=== PATIENT | male | born 1970 | race Asian ===

== ENCOUNTER 2024-10-13 02:05 | Emergency (ER) | payer MEDICARE, OTHER ==
[~2024-10-13] VITALS: Ht 167.6 cm; Wt 93.9 kg
[~2024-10-13 02:05] MED LIST: BUSP10TA3 PO
--- NOTE | 2024-10-13 02:39 | ERN ---
ED Note History of Present Illness Stated Complaint: C/O WITHDRAWAL SYMPTOMS; STOPPED MEDS ON 1970 Chief Complaint: Other Problems Time Seen by MD: 02:31 Dictation: This is a 54-year-old male with known history of multiple medical problems presented to the emergency room stating that he is going through withdrawal symptoms. When asked to elaborate patient stated that he has had body aches and joint pains as well as feeling hot and cold and sweaty. Patient stated that he has taken multiple showers without any improvement. He also reported some shortness of breath and chest congestion and wheezing. He is a smoker and continues to smoke actively. He stated that his psych medications which included olanzapine, BuSpar, hydroxyzine and metformin-he stopped taking them on 10/01/2024 basically attributing all his symptoms as adverse effects of the medications. He stated that he called his psychiatrist but did not get a return call back. He did see his primary care physician who initiated him on losartan, cholesterol medication. He denied any suicidal ideations or hallucinations. He also denied any homicidal ideations. He is very pleasant and interactive Temperature 98 pulse 69 respirations 20 blood pressure 190/110 with a pulse oximetry of 99% on room air His chronic medical problems include anxiety, depression, hypertension, schizophrenia and history of back surgery Allergies: Coded Allergies: No Known Allergies (Unverified Allergy, Unknown, 05/18/23) Home Meds Active Scripts Buspirone HCl (Buspirone HCl) 10 Mg Tablet, 10 MG PO TID PRN for ANXIETY/DEPRESSION for 30 Days, #90 TAB 1 Refill Prov:ANCELMO OLVERA 05/18/23 Past Medical History Past Medical History: Anxiety, Depression, Hypertension, Schizophrenia Surgical History: Other Surgical History Other: BACK SX Family History: Negative Social History: Smokers, Drugs (Marijuana use) RN Note Reviewed/Agreed w/PFSH: Yes Review of System Dictation Constitutional: Negative for fever,chills, and weight loss Eyes: Negative for injury, pain,redness, and discharge ENT: Negative for injury,pain or swelling Cardiovascular: Negative for chest pain, palpitations, and edema Respiratory: Positive for shortness of breath, cough, and wheezing, also reports sinus congestion Abdomen/GI: Negative for abdominal pain, nausea, vomiting, diarrhea, and constipation Back: Negative for injury and pain : Negative for injury, bleeding and discharge MS/Extremity: Negative for injury and deformity Skin: Negative for rash, and discoloration Neuro: Negative for headache, weakness, numbness, tingling, and seizure Psych: Negative for suicide ideation, homicidal ideation, and hallucinations positive for severe anxiety and feels that he has withdrawal symptoms as he stopped taking his medications on 10/01/2024 Initial Vital Sign VS Vital Signs Date Time Temp Pulse Resp B/P (MAP) Pulse Ox O2 Delivery O2 Flow Rate FiO2 10/13/24 02:09 98.1 69 20 190/110 99 Room Air 10/13/24 04:17 0 21 Physical Exam Dictation General: awake, alert, NAD generally anxious Head/Face: Normocephalic, atraumatic Eyes: PERRL, EOMI, vision at baseline ENT: oral cavity clear, TMs clear, no signs of infection Neck: Trachea midline, supple, no nuchal rigidity Cardiovascular: RRR, normal S1/S2, No MRGs, no JVD Respiratory: Prolonged expiratory phase with a end expiratory wheezing with forced expiratory maneuver Abdomen: Soft, non-tender, non-distended, normal bowel sounds, no guarding or rebound. Skin: Warm, dry, normal turgor, no rash MS/Extremity: Pulses equal, no cyanosis, neurovascular intact, FROM Neuro: COAx4, GCS 15, strength 5/5, CN 2-12 intact, normal cerebellar exam, nor mal gait, Psych: Normal behavior, mood, and affect normal Extremities-trace edema without any palpable cords, Homans sign is negative Results (Laboratory/Radiology) Laboratory/Radiology Laboratory Tests Test 10/13/24 02:58 10/13/24 03:10 White Blood Count 11.9 K/uL (4.8-10.8) H Red Blood Count 4.42 MIL/uL (4.50-6.20) L Hemoglobin 13.9 g/dL (14.0-18.0) L Hematocrit 39.4 % (42-54) L Mean Corpuscular Volume 89.1 fL (79-99) Mean Corpuscular Hemoglobin 31.4 pg (27.0-33.0) Mean Corpuscular Hemoglobin Concent 35.3 g/dL (32.0-36.0) Red Cell Distribution Width 14.0 % (11.0-15.5) Platelet Count 264 K/uL (130-400) Mean Platelet Volume 9.4 fL (7.5-10.5) Immature Granulocyte % (Auto) 0.3 % (0-1) Neutrophils (%) (Auto) 69.3 % (40.0-77.0) Lymphocytes (%) (Auto) 19.8 % (21.0-51.0) L Monocytes (%) (Auto) 9.2 % (3.0-13.0) Eosinophils (%) (Auto) 1.1 % (0.0-8.0) Basophils (%) (Auto) 0.3 % (0.0-5.0) Neutrophils # (Auto) 8.3 K/uL (1.8-7.7) H Lymphocytes # (Auto) 2.4 K/uL (1.0-4.8) Monocytes # (Auto) 1.1 K/uL (0.1-1.0) H Eosinophils # (Auto) 0.13 K/uL (0.00-0.70) Basophils # (Auto) 0.04 K/uL (0.00-0.20) Absolute Immature Granulocyte (auto 0.04 K/uL (0-1) Nucleated Red Blood Cells 0.0 % (0.0-0.19) Urine Color COLORLESS (YELLOW) Urine Appearance CLEAR (CLEAR) Urine pH 5.5 (5.0-8.0) Urine Specific [place] 1.002 (1.001-1.031) Urine Protein NEGATIVE mg/dL (NEGATIVE) Urine Glucose (UA) NEGATIVE mg/dL (NEGATIVE) Urine Ketones NEGATIVE mg/dL (NEGATIVE) Urine Occult Blood +- (TRACE) (NEGATIVE) H Urine Nitrate NEGATIVE (NEGATIVE) Urine Bilirubin NEGATIVE mg/dL (NEGATIVE) Urine Urobilinogen 0.2 mg/dL (0.2-1.0) Urine Leukocyte Esterase NEGATIVE [place]/uL Urine RBC 0-1 /HPF (0-1) Urine WBC 0-1 /HPF (0-1) Urine Bacteria None /HPF (None Seen) Sodium Level 136 mmol/L (136-145) Potassium Level 3.0 mmol/L (3.5-5.1) *L Chloride Level 99 mmol/L (101-111) L Carbon Dioxide Level 27 mmol/L (21-32) Blood Urea Nitrogen 2 mg/dL (7-18) L Creatinine 1.2 mg/dL (0.5-1.3) Glomerular Filtration Rate Calc 72 mL/min (>90) Random Glucose 152 mg/dL (70-105) H Total Calcium 8.9 mg/dL (8.5-10.1) Urine Opiates Screen NEGATIVE (NEGATIVE) Urine Barbiturates Screen NEGATIVE (NEGATIVE) Urine Phencyclidine Screen NEGATIVE (NEGATIVE) Urine Amphetamines Screen NEGATIVE (NEGATIVE) Urine Benzodiazepines Screen NEGATIVE (NEGATIVE) Urine Cocaine Screen NEGATIVE (NEGATIVE) Urine Marijuana (THC) Screen POSITIVE (NEGATIVE) H Influenza Type A Antigen Negative For Type A Influenza Type B Antigen Negative For Type B SARS-CoV-2 Antigen (Rapid) PRESUMPTIVE NEGATIVE Group A Streptococcus Rapid negative (NEGATIVE) Labs Reviewed?: Yes EKG Comment: Twelve lead EKG done on 10/13/2024 at 3:52 a.m. a.m. shows a heart rate of 64, AL interval 162, QRS 92, QT/QTC 406/421 Impression normal sinus rhythm with a no acute STT wave changes. QT interval normal. EKG rhythm strip shows a normal sinus rhythm with no acute STT wave change Interpreted by ER MD Dr. Maldonado ED Course ED Course Orders Procedure Category Date Status Time Cbc With Differential LAB 10/13/24 Complete 02:34 Basic Metabolic Panel LAB 10/13/24 Complete 02:34 Urinalysis Profile LAB 10/13/24 Complete 02:34 Drug Screen Urine LAB 10/13/24 Complete 02:34 12 Lead Ekg Tracing- EKG 10/13/24 Logged Technical 02:34 Diazepam 5 Mg/Ml 2 Ml PHA 10/13/24 Complete Syg (Valium 5 Mg/M 03:00 Influenza Type A & B, LAB 10/13/24 Complete Rapid 02:57 Covid19 (Sars Antigen LAB 10/13/24 Complete Rapid) 02:57 Rapid (Group A Strep) LAB 10/13/24 Complete 02:57 Ipratropium/Albuterol PHA 10/13/24 Complete Neb (Duoneb) 03:00 Methylprednisolone PHA 10/13/24 Complete Succ 40mg (Solu-Medro 03:00 Chest 1vw RAD 10/13/24 Taken 02:57 Potassium Bicarb/Cit PHA 10/13/24 Complete Ac 25meq (K-Lyte Ta 03:30 Current Medications Medications (Trade) Dose Ordered Sig/Oscar Route PRN Reason Start Time Stop Time Status Last Admin Dose Admin Albuterol (DUOneb) 1 UDVIAL ONCE ONCE IH 10/13/24 03:00 10/13/24 03:01 DC 10/13/24 03:45 Diazepam (VALium 5 MG/ML 2 ML SYG) 5 mg ONCE ONCE IVP 10/13/24 03:00 10/13/24 03:01 DC 10/13/24 03:00 Methylprednisolone Sodium Succinate (Solu-medROL 40MG) 40 mg ONCE ONCE IVP 10/13/24 03:00 10/13/24 03:01 DC 10/13/24 03:11 Potassium Bicarbonate (K-Lyte Tablet Eff 25 Meq Tablet.eff) 50 meq ONCE ONCE PO 10/13/24 03:30 10/13/24 03:32 DC 10/13/24 03:39 Vital Signs Date Time Temp Pulse Resp B/P (MAP) Pulse Ox O2 Delivery O2 Flow Rate FiO2 10/13/24 04:17 98.4 70 18 157/88 100 Room Air* 0 21 10/13/24 03:45 72 19 10/13/24 02:09 98.1 69 20 190/110 99 Room Air We will perform diagnostic labs, and administer medications according to the pa tient's complaint. Once the results are available, will review and personally interpreted the labs to rule out any acute life-threatening emergency the trach require immediate intervention and treatment. I will then re-evaluate the patient after treatment and diagnostic exams have return to determine whether the patient requires any further testing, can safely be discharged home or need further admission to hospital for additional treatment and evaluation. Labs reviewed CBC shows a white count of 11.9 otherwise with a normal limits. BNP 7 is significant for a potassium of 3.0 BUN and creatinine are 2 and 1.2. Nasal swabs for influenza COVID and streptococcal pharyngitis are all negative Urine drug screen is positive for THC. Chest x-ray shows COPD changes and dirty lungs from smoking 4:00 a.m. on re-evaluation patient admits to feeling significantly better. Potassium supplementation is in progress Medical Decision Making MDM Differential diagnosis: Anxiety, panic attack, withdrawal from the medications, recreational drug abuse Rationale: Tests considered and ordered secondary to shared decision making include: Previous outside records reviewed: Old ER visits. Risk of complication and/or morbidity or mortality of patient management: None Medications-Per medication reconciliation Need for hospitalization: Patient does not meet criteria for hospitalization. Need for emergency major/minor surgery: No There are no social concerns with this patient. Prescription drug management Prescriptions will include symptomatic care Patient's prior external medical records from other ER visits were reviewed by me as indicated. Prior testing and results from previous visits were reviewed. Prior tests were taken into account with medical decision making and resource utilization, independent historian/historians were used to obtain complete medical history. I independently interpreted the test that were performed, results were reviewed by me and considered findings on radiology if ordered. Medical management and examination interpretation discussions were had by me with other qualified healthcare professionals as indicated for the patient's care. Problem List Problem List: (1) Moderate anxiety (2) Schizophrenia (3) Depression (4) Uncontrolled hypertension (5) Hypokalemia (6) COPD exacerbation DX & DISP Disposition: Discharge Departure Impression: Primary Impression: Uncontrolled hypertension Additional Impressions: COPD exacerbation, Hypokalemia, Moderate anxiety, Depression, Schizophrenia Condition: Stable Scripts Diazepam (Valium) 2 Mg Tablet 1 TAB PO [id number] PRN for anxiety for 3 Days, #6 TAB 0 Refills Prov: TREVA MALDONADO MD 10/13/24 Ipratropium/Albuterol Sulfate (Combivent Respimat Inhal [place]) 20 Mcg-100 Mcg/Actuation Aer.w.adap 2 PUFF IH TID for shortness of breath, #4 GM 0 Refills Prov: TREVA MALDONADO MD 10/13/24 Azithromycin (Azithromycin) 250 Mg Tablet 1 TAB PO AD for 5 Days, #6 TAB 0 Refills 2 the first day followed by 1 for days 2-5 Prov: TREVA MALDONADO MD 10/13/24 Prednisone (Prednisone) 20 Mg Tablet 1 TAB PO AD for 6 Days, #14 TAB 0 Refills TAKE 1 TAB BY MOUTH THREE TIMES PER DAY X3 DAYS, THEN TAKE 1 TAB BY MOUTH TWICE A DAY X2 DAYS, THEN TAKE 1 TAB BY MOUTH ONCE A DAY X1 DAY. Prov: TREVA MALDONADO MD 10/13/24 Additional Instructions: Patient and the caregiver have been informed of all the diagnostic tests and the imaging conducted during the today's visit to the emergency room and has verbalized understanding of the results I have personally reviewed and interpreted all diagnostic exams performed here in the ER today as well as the vital signs documented by the nursing staff. The patient is now being discharged to home and should follow up with the primary care physician or the specialist as directed by the ER staff. Follow-up with primary care provider in 1 to 2 days. Take medications as directed here in the emergency room. Okay to continue home medications unless otherwise discussed during your visit in the emergency room today. Return to your nearest emergency room if symptoms worsen or if there is no improvement. Call 911 if you need immediate assistance. Take Tylenol or Motrin [id number] as needed and if no contraindications are present. Increase oral hydration. A wound culture or urine culture was ordered here in the emergency room department please follow-up with primary care provider and advise them to get repeat ports from our facility. If you had any [place]o wrap/splints that were applied here, please do not remove them until you see your primary care or specialty. Referrals: SELF,REFERRAL (PCP) TREVA MALDONADO MD Oct 13, 2024 02:39
[2024-10-13 03:10] LABS: IMMATURE GRANULOCYTE ABSOLUTE 0.04 K/uL (0-1); NUCLEATED RED BLOOD CELLS 0.0 % (0.0-0.19); PLATELET COUNT (AUTO) 264 K/uL (130-400); RED BLOOD CELL COUNT(AUTO) 4.42 MIL/uL (4.50-6.20); RED CELL DISTRIBUTION WIDTH 14.0 % (11.0-15.5); WHITE BLOOD COUNT (AUTO) 11.9 K/uL (4.8-10.8)
[2024-10-13] MEDS: Solu-medROL 40MG VIAL IVP ONE (03:11)
[2024-10-13 03:13] LABS: APPEARANCE,URINE CLEAR (CLEAR); GLUCOSE, URINE (UA) NEGATIVE (NEGATIVE); LEUKOCYTE ESTERASE ,URINE NEGATIVE Leu/uL (NEGATIVE); NITRATE,URINE NEGATIVE (NEGATIVE); OCCULT BLOOD,URINE +- (TRACE) (NEGATIVE)
[2024-10-13 03:20] LABS: AMPHET/METH SCREEN,URINE NEGATIVE (NEGATIVE); BARBITURATE SCREEN, URINE NEGATIVE (NEGATIVE); CANNABINOID SCREEN,URINE POSITIVE (NEGATIVE); COCAINE SCREEN,URINE NEGATIVE (NEGATIVE)
[2024-10-13 03:21] LABS: CREATININE 1.2 mg/dL (0.5-1.3); GLOMERULAR FILTR. RATE CALC 72.0 mL/min (>90); GLUCOSE,RANDOM 152.0 mg/dL (70-105); SODIUM SERUM 136.0 mmol/L (136-145); UREA NITROGEN, BLOOD 2.0 mg/dL (7-18)
[2024-10-13 03:26] LABS: RAPID GROUP A STREP negative (NEGATIVE)
[2024-10-13 03:28] LABS: ADD UA MICROSCOPIC YES
[2024-10-13 03:36] LABS: COVID19 (SARS ANTIGEN RAPID) PRESUMPTIVE NEGATIVE (NEGATIVE); INFLUENZA TYPE A Negative For Type A (NEGATIVE); INFLUENZA TYPE B Negative For Type B (NEGATIVE)
[2024-10-13 03:45] VITALS: PULSE 72; RESP 19
[2024-10-13 04:17] VITALS: BP 157/88; PULSE 70; RESP 18; TEMP 98.4; O2SAT 100
[2024-10-13] MEDS ORDERED: IPRA4AER IH (04:34)
[2024-10-13] MEDS ORDERED: PRED20TA3 PO (04:34)
[2024-10-13] MEDS ORDERED: DIAZ2TAB PO (04:34)
[2024-10-13] MEDS ORDERED: AZIT250T9 PO (04:34)
--- NOTE | 2024-10-13 04:42 | HMCIMG ---
EXAM: CR Chest, 1 view CLINICAL HISTORY: Chest congestion and wheezing. COMPARISON: None provided. FINDINGS: The lungs show no infiltrates or other acute findings. Mild atelectatic opacities around the left lingula. No pleural effusion or pneumothorax. The cardiomediastinal silhouette is within normal limits. No acute osseous abnormality. IMPRESSION: No acute cardiopulmonary process is evident. Mild atelectatic opacities around the left lingula. /[place]
--- NOTE | 2024-10-13 06:31 | EKG ---
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
[2024-10-13] MEDS ORDERED: TRAZ-185 PO (18:34)
[2024-10-13] MEDS ORDERED: OMEP40CA21 PO (18:34)
[2024-10-13] MEDS ORDERED: IBUP-2077 PO (18:34)
[2024-10-13] MEDS ORDERED: LOSA100T59 PO (18:34)
[2024-10-13] MEDS ORDERED: LEVO25CA5 PO (18:34)
[2024-10-13] MEDS ORDERED: ATOR10 PO (18:34)
[2024-10-13] MEDS ORDERED: OLAN20TA82 PO (19:09)
[2024-10-13] MEDS ORDERED: HYDR-3421 PO (19:09)
[2024-10-13] MEDS ORDERED: METF-444 PO (19:09)
[2024-10-13] MEDS ORDERED: BUSP15TA3 PO (19:09)
[2024-10-15] MEDS ORDERED: CARV6.2579 PO (15:51)
[2024-10-15] MEDS ORDERED: LOSA-418 PO (15:51)
[2024-10-15] MEDS ORDERED: AMLO5TAB4 PO (15:51)
== END 2024-10-13 04:42 | disposition home or self-care (01) ==
LOC: EDH 02:05
DX: I10 Essential (primary) hypertension (principal); J44.1 Chronic obstructive pulmonary disease with (acute) exacerbation; E87.6 Hypokalemia; F32.A Depression, unspecified; F20.9 Schizophrenia, unspecified; F17.200 Nicotine dependence, unspecified, uncomplicated; F41.9 Anxiety disorder, unspecified; Z20.822 Contact with and (suspected) exposure to COVID-19
CPT/HCPCS: 99285; 96374; 71045; 96375; 87426; 80048; 80305; 85025; 87880; 87804 ×2; 36415; 93005; 94640; 81001; J2919; J3360

== ENCOUNTER 2024-11-08 11:25 | Emergency (ER) | payer OTHER ==
[~2024-11-08] VITALS: Ht 167.6 cm; Wt 88.7 kg
[~2024-11-08 11:25] MED LIST changes: +AMLO5TAB4 PO; +ATOR10 PO; -BUSP10TA3 PO; +BUSP15TA3 PO; +CARV6.2579 PO; +HYDR-3421 PO; +IPRA4AER IH; +LEVO25CA5 PO; +LOSA-418 PO; +METF-444 PO; +OLAN20TA82 PO; +OMEP40CA21 PO; +TRAZ-185 PO
--- NOTE | 2024-11-08 11:33 | ERN ---
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 HE HAD SEEN DR. MACIAS FOR A LEFT VENTRICULAR HYPERTROPHY WHILE AT [facility] [place] AND WAS STARTED ON A NEW BLOOD PRESSURE MEDICATIONS SAID HE HAS BEEN FEELING THIS WAY SINCE. NO NAUSEA NO VOMITING NO BACK PAIN NO JAW PAIN NO ARM PAIN. STATES HE HAS A AN APPOINTMENT WITH DR. JEAN-BAPTISTE ON FRIDAY. Allergies: Coded Allergies: No Known Allergies (Unverified Allergy, Unknown, 05/18/23) Home Meds Active Scripts Losartan Potassium (Cozaar) 50 Mg Tablet, 50 MG PO BID, #60 TAB Prov:MICHEAL VOGEL MD 10/15/24 Carvedilol (Coreg) 6.25 Mg Tablet, 6.25 MG PO BID, #60 TAB Prov:MICHEAL VOGEL MD 10/15/24 Amlodipine Besylate (Norvasc 5Mg Tab) 5 Mg Tablet, 5 MG PO DAILY, #30 TAB Prov:MICHEAL VOGEL MD 10/15/24 Ipratropium/Albuterol Sulfate (Combivent Respimat Inhal [place]) 20 Mcg-100 Mcg/Actuation Aer.w.adap, 2 PUFF IH TID for shortness of breath, #4 GM 0 Refills Prov:TREVA MALDONADO MD 10/13/24 Reported Medications Hydroxyzine HCl (Hydroxyzine HCl) 25 Mg Tablet, 25 MG PO QIDP PRN for ITCHING, TAB 10/13/24 Buspirone HCl (Buspirone HCl) 15 Mg Tablet, 15 MG PO TID, TAB 10/13/24 Olanzapine (Olanzapine) 20 Mg Tablet, 20 MG PO HS, TAB 10/13/24 Metformin HCl (Metformin HCl) 500 Mg Tablet, 500 MG PO DAILY, TAB 10/13/24 Levothyroxine Sodium (Levothyroxine) 25 Mcg Capsule, 1 CAP PO DAILY for 30 Days, #30 CAP 0 Refills 10/13/24 Atorvastatin Calcium (LIPITOR) 20 Mg Tab, 1 TAB PO HS for 30 Days, #30 TAB 0 Refills 10/13/24 Omeprazole (Omeprazole) 40 Mg Capsule.dr, 1 CAP PO DAILY for 30 Days, #30 CAP 0 Refills 10/13/24 Trazodone HCl (Trazodone HCl) 50 Mg Tablet, 1 TAB PO HS for 30 Days, #30 TAB 0 Refills 10/13/24 Past Medical History Past Medical History: Anxiety, Depression, Heart Disease, Hypertension, Schizophrenia Additional Past Medical Hx: IMSOMNIA, SCIATICA Surgical History: Other Surgical History Other: LUMBAR FUSION Family History: Negative Social History: Smokers, Drugs RN Note Reviewed/Agreed w/PFSH: Yes Review of System Dictation CONSTITUTIONAL: NEGATIVE EXCEPT FOR HPI HEAD/FACE: NEGATIVE EXCEPT FOR HPI EENT: NEGATIVE EXCEPT FOR HPI RESPIRATORY: NEGATIVE EXCEPT FOR HPI SOB/CHEST PRESSURE GASTROINTESTINAL/ABDOMINAL: NEGATIVE EXCEPT FOR HPI GENITOURINARY: NEGATIVE EXCEPT FOR HPI MUSCULOSKELETAL: NEGATIVE EXCEPT FOR HPI INTEGUMENTARY: NEGATIVE EXCEPT FOR HPI NEUROLOGICAL/PSYCH: NEGATIVE EXCEPT FOR HPI HEMATOLOGIC/LYMPHATIC: NEGATIVE EXCEPT FOR HPI ALL SYSTEMS NEGATIVE, EXCEPT NOTED ABOVE. 13 POINT REVIEW OF SYSTEMS ASSESSED AND ALL NEGATIVE EXCEPT FOR ABOVE. Initial Vital Sign VS Vital Signs Date Time Temp Pulse Resp B/P (MAP) Pulse Ox O2 Delivery O2 Flow Rate FiO2 11/08/24 11:26 98.2 72 18 144/99 100 Room Air 0 Physical Exam Dictation VITAL SIGNS REVIEWED GENERAL APPEARANCE: ALERT, ORIENTED X 3, NO ACUTE DISTRESS, WELL DEVELOPED, NOURISHED. ANXIETY HEAD AND FACE: NON-TRAUMATIC. EYES: PERRL, PINK CONJUNCTIVAS, EYELID NO TRAUMA, ANTERIOR CHAMBER WITH ARCUS SENILIS. EARS: PINNAS INTACT AND NO SIGNS OF TRAUMA OR ERYTHEMA EAR CANALS CLEAR AND NO DISCHARGE TM NO ERYTHEMA NOSE: NO DISCHARGE, NO BLEEDING. OROPHARYNX: MOUTH NORMAL, TONGUE PINK, PHARYNX CLEAR,NO ERYTHEMA, TONSILS NO EXUDATES, NO ABSCESSES NOTED, MUCOUS MEMBRANE MOIST NECK: SUPPLE, NON-TENDER, NO THYROMEGALY, NO MASSES, NO JVD, NO BRUITS BREAST:DEFERRED CHEST:NO TENDERNESS, NO CREPITUS, NO PARADOXICAL MOVEMENT, NO RETRACTIONS LUNGS:CLEAR, WELL-VENTILATED, SYMMETRIC, NO RALES, NO WHEEZING, NO RHONCHI, NO STRIDOR, GOOD BREATH SOUNDS BILATERALLY HEART: REGULAR RATE, REGULAR RHYTHM, NO MURMUR, NO GALLOPS VASCULAR: NO PERIPHERAL EDEMA, ABDOMEN: SOFT, POSITIVE BOWEL SOUNDS, NONDISTENDED, NO GUARDING, NONTENDER, NO REBOUND, NO MASSES NO HEPATOMEGALY, NO SPLENOMEGALY, NO ASH'S SIGN, NO HERNIAS. RECTAL: DEFERRED GENITAL: DEFERRED NEUROLOGICAL: NORMAL SPEECH, MOTOR FUNCTION INTACT, SENSORY FUNCTION INTACT MUSCULOSKELETAL: NECK NONTENDER, FULL RANGE OF MOTION, BACK NONTENDER, FULL RANGE OF MOTION, EXTREMITIES: NONTENDER, FULL RANGE OF MOTION SKIN: COLOR PINK, DRY, NO TURGOR, NO RASH, NO LACERATIONS, NO ABRASIONS, NO CONTUSIONS. LYMPHATIC: DEFERRED Results (Laboratory/Radiology) Laboratory/Radiology Laboratory Tests Test 11/08/24 11:49 11/08/24 13:22 White Blood Count 7.6 K/uL (4.8-10.8) Red Blood Count 4.42 MIL/uL (4.50-6.20) L Hemoglobin 14.1 g/dL (14.0-18.0) Hematocrit 40.9 % (42-54) L Mean Corpuscular Volume 92.5 fL (79-99) Mean Corpuscular Hemoglobin 31.9 pg (27.0-33.0) Mean Corpuscular Hemoglobin Concent 34.5 g/dL (32.0-36.0) Red Cell Distribution Width 14.6 % (11.0-15.5) Platelet Count 224 K/uL (130-400) Mean Platelet Volume 9.5 fL (7.5-10.5) Immature Granulocyte % (Auto) 0.3 % (0-1) Neutrophils (%) (Auto) 60.9 % (40.0-77.0) Lymphocytes (%) (Auto) 26.9 % (21.0-51.0) Monocytes (%) (Auto) 9.2 % (3.0-13.0) Eosinophils (%) (Auto) 2.2 % (0.0-8.0) Basophils (%) (Auto) 0.5 % (0.0-5.0) Neutrophils # (Auto) 4.6 K/uL (1.8-7.7) Lymphocytes # (Auto) 2.0 K/uL (1.0-4.8) Monocytes # (Auto) 0.7 K/uL (0.1-1.0) Eosinophils # (Auto) 0.17 K/uL (0.00-0.70) Basophils # (Auto) 0.04 K/uL (0.00-0.20) Absolute Immature Granulocyte (auto 0.02 K/uL (0-1) Nucleated Red Blood Cells 0.0 % (0.0-0.19) Sodium Level 136 mmol/L (136-145) Potassium Level 3.6 mmol/L (3.5-5.1) Chloride Level 101 mmol/L (101-111) Carbon Dioxide Level 26 mmol/L (21-32) Blood Urea Nitrogen 10 mg/dL (7-18) Creatinine 1.1 mg/dL (0.5-1.3) Glomerular Filtration Rate Calc 80 mL/min (>90) Random Glucose 138 mg/dL (70-105) H Total Calcium 9.2 mg/dL (8.5-10.1) Magnesium Level 2.10 mg/dL (1.80-2.40) Troponin I High Sensitivity 80 ng/L (4-75) *H 75 ng/L (4-75) B-Type Natriuretic Peptide < 5 pg/mL (0-100) hest, 1 View. CLINICAL HISTORY: SHORTNESS A BREATH COMPARISON: None provided. FINDINGS: LUNGS: The lungs show no infiltrate or other acute finding. PLEURAL SPACES: No evidence of pleural effusion or pneumothorax. MEDIASTINUM: The cardiomediastinal silhouette is within normal limits. BONES: No aggressive appearing osseous lesion seen. IMPRESSION: No acute cardiopulmonary pathology is evident. /[place] Labs Reviewed?: Yes EKG: (+) NSR EKG Comment: 1132/EKG NORMAL SINUS RHYTHM/HEART RATE 71/AXIS NORMAL/NO ECTOPY SECOND EKG NORMAL SINUS RHYTHM/HEART RATE 70/AXIS NORMAL/NO ECTOPY HIGH SENSITIVITY TROPONIN 75, HEART SCORE IS THREE ED Course ED Course Orders Procedure Category Date Status Time Covid19 (Sars Antigen LAB 11/08/24 Logged Rapid) 11:31 B-Type Natriuretic LAB 11/08/24 Complete Peptide 11:31 Cbc With Differential LAB 11/08/24 Complete 11:31 Chest 1vw RAD 11/08/24 Resulted 11:31 12 Lead Ekg Tracing- EKG 11/08/24 Complete Technical 11:31 Magnesium LAB 11/08/24 Complete 11:31 Troponin I High LAB 11/08/24 Complete Sensitivity 11:31 Basic Metabolic Panel LAB 11/08/24 Complete 11:31 12 Lead Ekg Tracing- EKG 11/08/24 Complete Technical 13:06 Troponin I High LAB 11/08/24 Complete Sensitivity 13:06 Vital Signs Date Time Temp Pulse Resp B/P (MAP) Pulse Ox O2 Delivery O2 Flow Rate FiO2 11/08/24 11:26 98.2 72 18 144/99 100 Room Air 0 1430/PATIENT IS ALERT AND ORIENTED X4 SPEECH IS CLEAR NO CHEST PAIN AT THIS TIME. HE IS AWARE THAT CARDIAC WORKUP IS NEGATIVE IN A FOLLOW UP WITH HIS PRIMARY CARE DOCTOR. HEART Score Response (Comments) Value History: Low suspicion (0) 0 Age: 45-65yrs (+1) 1 Risk Factors: 1-2 risk factors (+1) 1 Initial Troponin: 1-3x Normal Limit (+1) 1 Total 3 Medical Decision Making MDM MDM: DIFFERENTIAL DIAGNOSIS: ACS/AMI/ELECTROLYTE IMBALANCE/DEHYDRATION/HYPOMAGNESEM IA/ANXIETY/EKG/LABS/RADIOLOGY RATIONALE: TESTS CONSIDERED AND ORDERED SECONDARY TO SHARED DECISION MAKING INCLUDE: PREVIOUS OUTSIDE RECORDS REVIEWED: OLD ER VISITS. RISK OF COMPLICATION AND/OR MORBIDITY OR MORTALITY OF PATIENT MANAGEMENT: NONE MEDICATIONS-PER MEDICATION RECONCILIATION NEED FOR HOSPITALIZATION: PATIENT DOES NOT MEET CRITERIA FOR HOSPITALIZATION. NONE NEED FOR EMERGENCY MAJOR/MINOR SURGERY: NO THERE ARE NO SOCIAL CONCERNS WITH THIS PATIENT. PRESCRIPTION DRUG MANAGEMENT NONE PRESCRIPTIONS WILL INCLUDE SYMPTOMATIC CARE PATIENT'S PRIOR EXTERNAL MEDICAL RECORDS FROM OTHER ER VISITS WERE REVIEWED BY ME INDICATED. PRIOR TESTING AND RESULTS FROM PREVIOUS VISITS WERE REVIEWED. PRIOR TESTS WERE TAKEN INTO ACCOUNT WITH MEDICAL DECISION MAKING AND RESOURCE UTILIZATION, INDEPENDENT HISTORIAN/HISTORIANS WERE USED TO OBTAIN COMPLETE MEDICAL HISTORY. I INDEPENDENTLY INTERPRETED THE TEST THAT WERE PERFORMED, RESULTS WERE REVIEWED BY ME AND CONSIDERED FINDINGS ON RADIOLOGY IF ORDERED. MEDICAL MANAGEMENT AND EXAMINATION INTERPRETATION DISCUSSIONS WERE HAD BY ME WITH OTHER QUALIFIED HEALTHCARE PROFESSIONALS INDICATED FOR THE PATIENT'S CARE. DX & DISP Disposition: Discharge Departure Impression: Primary Impression: Medication side effect Additional Impressions: Anxiety, Elevated troponin level not due to acute coronary syndrome Condition: Stable Additional Instructions: FOLLOW-UP WITH PRIMARY CARE PROVIDER IN 1 TO 2 DAYS. TAKE MEDICATIONS DIREC BONG HERE IN THE EMERGENCY ROOM. OKAY TO CONTINUE HOME MEDICATIONS UNLESS OTHERWISE DISCUSSED DURING YOUR VISIT IN THE EMERGENCY ROOM TODAY. RETURN TO YOUR NEAREST EMERGENCY ROOM IF SYMPTOMS WORSEN OR IF THERE IS NO IMPROVEMENT. CALL 911 IF YOU NEED IMMEDIATE ASSISTANCE. TAKE TYLENOL OR MOTRIN [id number] NEEDED AND IF NO CONTRAINDICATIONS ARE PRESENT. INCREASE ORAL HYDRATION. A WOUND CULTURE OR URINE CULTURE WAS ORDERED HERE IN THE EMERGENCY ROOM DEPARTMENT PLEASE FOLLOW-UP WITH PRIMARY CARE PROVIDER AND ADVISE THEM TO GET REPEAT PORTS FROM OUR FACILITY. IF YOU HAD ANY NAVYA WRAP/SPLINTS THAT WERE APPLIED HERE, PLEASE DO NOT REMOVE THEM UNTIL YOU SEE YOUR PRIMARY CARE OR SPECIALTY. CONTINUE ALL MEDICATIONS AND TREATMENTS FROM YOUR DOCTOR, SEE YOUR PRIMARY CARE DOCTOR FOR FOLLOW UP AND MANAGEMENT. Referrals: YANCY GARRETT MD (PCP) Time of Disposition: 14:32 I have reviewed the case, and I agree with, Diagnosis and Plan LUCILA PETER NP Nov 08, 2024 11:33
[2024-11-08 11:56] LABS: IMMATURE GRANULOCYTE ABSOLUTE 0.02 K/uL (0-1); NUCLEATED RED BLOOD CELLS 0.0 % (0.0-0.19); PLATELET COUNT (AUTO) 224 K/uL (130-400); RED BLOOD CELL COUNT(AUTO) 4.42 MIL/uL (4.50-6.20); RED CELL DISTRIBUTION WIDTH 14.6 % (11.0-15.5); WHITE BLOOD COUNT (AUTO) 7.6 K/uL (4.8-10.8)
[2024-11-08 12:09] LABS: CREATININE 1.1 mg/dL (0.5-1.3); GLOMERULAR FILTR. RATE CALC 80.0 mL/min (>90); GLUCOSE,RANDOM 138.0 mg/dL (70-105); SODIUM SERUM 136.0 mmol/L (136-145); UREA NITROGEN, BLOOD 10.0 mg/dL (7-18)
--- NOTE | 2024-11-08 12:48 | EKG ---
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
--- NOTE | 2024-11-08 12:56 | HMCIMG ---
EXAM: CR Chest, 1 View. CLINICAL HISTORY: SHORTNESS A BREATH COMPARISON: None provided. FINDINGS: LUNGS: The lungs show no infiltrate or other acute finding. PLEURAL SPACES: No evidence of pleural effusion or pneumothorax. MEDIASTINUM: The cardiomediastinal silhouette is within normal limits. BONES: No aggressive appearing osseous lesion seen. IMPRESSION: No acute cardiopulmonary pathology is evident. /[place]
--- NOTE | 2024-11-08 13:18 | EKG ---
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
[2024-11-08 14:32] VITALS: BP 148/101; PULSE 70; RESP 17; TEMP 97.9; O2SAT 100
== END 2024-11-08 14:49 | disposition home or self-care (01) ==
LOC: EDH 11:25
DX: F41.9 Anxiety disorder, unspecified (principal); R79.89 Other specified abnormal findings of blood chemistry; T50.905A Adverse effect of unspecified drugs, medicaments and biological substances, initial encounter; F32.A Depression, unspecified; I11.9 Hypertensive heart disease without heart failure; F17.200 Nicotine dependence, unspecified, uncomplicated; Z79.84 Long term (current) use of oral hypoglycemic drugs; Z79.890 Hormone replacement therapy; Z79.899 Other long term (current) drug therapy; Z98.1 Arthrodesis status; Z20.822 Contact with and (suspected) exposure to COVID-19; Y92.89 Other specified places as the place of occurrence of the external cause
CPT/HCPCS: 36415; 71045; 80048; 83735; 83880; 84484; 85025; 87426; 93005; 99285